=== PATIENT | female | born 1955 | race Two or more races ===

== ENCOUNTER 2021-08-10 19:44 | Emergency (ER) | payer OTHER ==
[~2021-08-10] VITALS: Ht 160 cm; Wt 63.5 kg
[2021-08-10] MEDS ORDERED: PROTONIX40 MG PO (22:37)
[2021-08-10] MEDS ORDERED: MEDROLPACK PO (22:37)
[2021-08-10] MEDS ORDERED: MOXIFLOXACIN H400 MG PO (22:37)
== END 2021-08-10 22:49 | disposition home or self-care (01) ==
LOC: ER 19:44
DX: J45.901 Unspecified asthma with (acute) exacerbation (principal); Z03.818 Encounter for observation for suspected exposure to other biological agents ruled out; R06.02 Shortness of breath; R05 Cough